=== PATIENT | female | born 1980 | race African-American/Black ===

== ENCOUNTER 2017-07-26 10:42 | Emergency (ER) | payer OTHER ==
[~2017-07-26] VITALS: Ht 175.3 cm; Wt 75.8 kg
[2017-07-26] MEDS ORDERED: IBUPROFEN 600600 M1 PO (11:33)
[2017-07-26] MEDS ORDERED: PENICILLIN V P500 MG PO (11:33)
[2017-07-26] MEDS ORDERED: LISINOPRIL10 MG PO (11:43)
== END 2017-07-26 12:14 | disposition home or self-care (01) ==
LOC: ER 10:42
DX: K08.89 Other specified disorders of teeth and supporting structures (principal)

== ENCOUNTER 2018-02-04 12:40 | Emergency (ER) | payer OTHER ==
[~2018-02-04] VITALS: Ht 175.3 cm; Wt 71.7 kg
[~2018-02-04 12:40] MED LIST: IBUPROFEN 600600 M1 PO; LISINOPRIL10 MG PO; PENICILLIN V P500 MG PO
[2018-02-04 13:28] VITALS: BP 163/100
[2018-02-05 14:14] LABS: NEISSERIA GONORRHEA-PCR Negative (Negative)
== END 2018-02-04 13:58 | disposition home or self-care (01) ==
LOC: ER 12:40
PROVIDERS: Student in an Organized Health Care Education/Training Program
DX: A64 Unspecified sexually transmitted disease (principal); I10 Essential (primary) hypertension